=== PATIENT | male | born 1940 | race Caucasian/White ===

== ENCOUNTER 2020-09-20 10:52 | Day surgery (SDC) | payer MEDICARE ==
[2020-09-18 10:59] LABS: BASOPHILS 1.4 % (0-2); EOSINOPHILS 6.8 % (0-7); HEMATOCRIT 42.6 % (42.0-54.0); LYMPHOCYTES 12.3 % (15-50); MCH 30.4 pg (26.0-34.0); MCHC 32.8 g/dL (31.0-37.0); MCV 92.7 fL (80.0-100.0); MEAN PLATELET VOLUME 9.6 fL (7.4-10.4); NEUTROPHILS 70.5 % (40-80); PLATELET COUNT 189 10x3/uL (130-400); RDW 14.3 % (11.5-14.5); WBC 7.2 10x3/uL (4.8-10.8)
[2020-09-18 11:06] LABS: ANION GAP 11.9 mmol/L (8-16); CALCIUM 8.6 mg/dL (8.5-10.1); CARBON DIOXIDE 28.6 mmol/L (21.0-32.0); CREATININE - SERUM 1.6 mg/dL (0.6-1.3); POTASSIUM - SERUM 4.5 mmol/L (3.5-5.1)
[~2020-09-20] VITALS: Ht 177.8 cm; Wt 97.5 kg
[~2020-09-20 10:52] MED LIST: ALLOPURINOL TAB 300 PO; BAYER CHEWABLE81 MG PO; LIPITOR20 MG PO; NEURONTIN800 MG PO; PREVACID15 MG PO; [UNRECOGNIZED DRUG - OTHER] PO
[2020-09-20 12:36] VITALS: BP 151/77; Ht 177.8 cm; Wt 97.5 kg
--- NOTE | 2020-09-20 14:21 | NUR ---
IMPLANT: REF:[id number] LOT# [id number] EXP. DATE: 08/31/2023
--- NOTE | 2020-09-20 16:46 | NUR ---
RX'D WITH NORCO FOR PAIN AND STES ITS 05/12. IV D/C'D WITH CANNULA INTACT, PRESSUE HELD AND DRSG PLACED. DISCHARGE INSTRUCTIONS GIVEN TO PT AND , BOTH VERBALIZED AN UNDERSTANDING.. DISCHARGED HOME IN STABLE CONDITION AND WITHOUT C/O
--- NOTE | 2020-09-21 08:13 | OP ---
PATIENT NAME: LUCIE ORTIZ MEDICAL RECORD: [id number] :39 LOCATION:D.OPS ADMISSION DATE: SURGEON: BRUNO MIGUEL DO DATE OF OPERATION: 09/20/2020 PROCEDURE PERFORMED: ORIF of the right foot second tarsometatarsal joint or Lisfranc joint. PREOPERATIVE DIAGNOSIS: Lisfranc ligament rupture and fracture. POSTOPERATIVE DIAGNOSIS: Lisfranc ligament rupture and fracture. INDICATIONS: Mr. Ortiz is an 79-year-old male who sustained an injury to his foot. He did not know why it hurt so bad, got an MRI showing that he started to get widening of the Lisfranc joint on x-ray and I told him we really need to fix it. He said he was okay with that. He is aware of the risk of this including damage to nerves and vessels in the area, infection, bleeding, continued pain, need for further surgery, hardware irritation, blood clots, and even , and he signed the consent. SURGEON: Bruno Miguel DO DESCRIPTION OF PROCEDURE: The patient received a block by anesthesia in the preoperative area, given 2 grams Ancef, taken to the operative suite, laid in supine position, given general anesthetic and LMA was placed. The right lower extremity was then prepped and draped in sterile fashion. A timeout was performed. Everyone was in agreement with the correct site, side, patient, and procedure. I then began by exsanguinating the right lower extremity with an Esmarch and tourniquet was inflated to 350 mmHg, it was up for 43 minutes. I then made incisions over the second metatarsal and the medial cuneiform. I then used a clamp and reduced the Lisfranc joint and then shot a K-wire across it because they meet into the third metatarsal. I then used the overdrill and put the mini TightRope through, it went into the third metatarsal shaft intramedullary canal. I then cinched it down, I did not have adequate reduction at least for me of the Lisfranc joint, did have good reduction, but not adequate. I then put the clamp back on and put another K-wire through the medial cuneiform to the second metatarsal and it exited just slightly dorsally. I then passed the button through and cinched it down. Once the button was in adequate position, I got lateral and saw it was a little proud laterally. I then turned it so it was not so proud and then cinched it back down reducing the Lisfranc joint very nicely between the two mini TightRopes. I then tied them down over the medial cuneiform and cut the excess suture. I then let tourniquet down. Any bleeding was coagulated with pickup and Bovie. I had made a separate incision over the third metatarsal to look for the button, it looked proud on the x-ray on the lateral. Art Larsen, certified surveyor's assistant, irrigated and then closed with horizontal mattress fashion with 2-0 nylon. He then dressed with Adaptic, 4 x 4, ABD, Webril, and put a posterior splint on and secured that with an Damien wrap. He was then awakened and taken to recovery in stable condition. BLOOD LOSS: Minimal. COMPLICATIONS: None. TRANSINT:[id number] Voice Confirmation ID: [id number] DOCUMENT ID: [id number] OPERATIVE REPORT [id number] LUCIE ORTIZ,BRUNO Magallanes DO at 0813 CC: [id number] DICTATION DATE: 09/20/20 1848 INSTRUMENT ASSEMBLY SUPERVISOR: 09/21/20 0101 [facility] 09/20/20 [facility] [address] [place] [address]
== END 2020-09-20 16:04 | disposition home or self-care (01) ==
LOC: D.OPS 10:52
PROVIDERS: Anesthesiology; ATTEND Orthopaedic Surgery
DX: S93.324A Dislocation of tarsometatarsal joint of right foot, initial encounter (principal); S93.621A Sprain of tarsometatarsal ligament of right foot, initial encounter; X58.XXXA Exposure to other specified factors, initial encounter